=== PATIENT | male | born 1960 | race Caucasian/White ===

== ENCOUNTER → 2017-04-14 | Emergency (ER) | payer OTHER ==
[~2017-04-14] VITALS: Ht 185.4 cm; Wt 74.8 kg
[~2017-04-14] MED LIST: ASPIRIN81 M1 PO; B-12500 MC1 PO; BACTRIM DS 8001 TA1 PO; BUSPAR15 MG PO; CEPHALEXIN500 M1 PO; COMBIVENT1 ARO IH; CYCLOBENZAPRINE10 MG PO; CYCLOBENZAPRINE5 M3 PO; DIAZEPAM10 MG PO; HYDROCODONE BIT1 T11 PO; HYDRODIURIL25 MG PO; KLONOPIN1 MG PO; KROGER NIC21 MG/24 H T; LISINOPRIL20 MG PO; LISINOPRIL40 MG PO; LUNESTA2 MG PO; MEDROL DOSEPAK4 MG PO; METOPROLOL25 MG PO; METOPROLOL50 MG PO; MULTI VITAMINS1 TAB PO; NAPROSYN500 MG PO; NATURE'S BLEND F1 MG PO; NITROSTAT0.4 MG SL; OMEPRAZOLE D/R20 MG PO; PAXIL20 MG PO; PAXIL30 M2 PO; PRAVASTATIN SOD40 MG PO; PRILOSEC10 MG PO; PRILOSEC20 M1 PO; PRILOSEC20 M2 PO; SEROQUEL400 M1 PO; SEROQUEL400 MG PO; SIMVASTATIN5 MG PO; VALIUM10 MG PO; VALIUM5 MG PO; VITAMIN D5000 I3 PO
[2017-04-14 05:14] VITALS: BP 148/108
== END ==
LOC: ED 05:06
DX: S00.83XA Contusion of other part of head, initial encounter (principal); S40.812A Abrasion of left upper arm, initial encounter; S40.811A Abrasion of right upper arm, initial encounter; F17.200 Nicotine dependence, unspecified, uncomplicated; E78.00 Pure hypercholesterolemia, unspecified; E78.5 Hyperlipidemia, unspecified; K21.9 Gastro-esophageal reflux disease without esophagitis; Z79.82 Long term (current) use of aspirin; Z90.89 Acquired absence of other organs; Z98.890 Other specified postprocedural states; Z79.899 Other long term (current) drug therapy; Z88.8 Allergy status to other drugs, medicaments and biological substances; Y08.89XA Assault by other specified means, initial encounter; Y93.89 Activity, other specified; Y92.89 Other specified places as the place of occurrence of the external cause; Y99.9 Unspecified external cause status

== ENCOUNTER → 2017-07-30 | Outpatient (CLI) | payer OTHER | END | disposition home or self-care (01) | LOC: RESCLI 01:45 | DX: F31.9 Bipolar disorder, unspecified (principal); K21.9 Gastro-esophageal reflux disease without esophagitis; F41.9 Anxiety disorder, unspecified; I10 Essential (primary) hypertension; E78.5 Hyperlipidemia, unspecified; I25.10 Atherosclerotic heart disease of native coronary artery without angina pectoris; J44.9 Chronic obstructive pulmonary disease, unspecified; Z72.0 Tobacco use; Z88.9 Allergy status to unspecified drugs, medicaments and biological substances ==

== ENCOUNTER → 2019-10-14 | Outpatient (CLI) | payer OTHER ==
[2019-10-14 09:53] LABS: BASO % 0.1 % (0.0-1.0); EOS # 0.2 10*3/uL (0.0-0.4); EOS % 1.7 % (1.0-4.0); HEMATOCRIT 45.9 % (42.0-52.0); HEMOGLOBIN 14.5 g/dl (14.0-18.0); LYMPH # 1.5 10*3/uL (1.3-4.4); LYMPH % 14.9 % (27.0-41.0); MEAN CELL VOLUME 92.7 fl (80.0-94.0); MEAN CORPUSCULAR HGB 29.3 pg (27.0-31.0); MEAN CORPUSCULAR HGB CONC 31.6 g/dl (33.0-37.0); MEAN PLATELET VOLUME 9.9 fl (9.6-12.3); MONO # 0.7 10*3/uL (0.1-1.0); NEUT # 7.6 10*3/uL (2.3-7.9); PLATELET COUNT AUTOMATED 294 10*3/uL (130-400); RED BLOOD COUNT 4.95 10*6/uL (4.50-5.90); RED CELL DISTRI WIDTH 13.5 % (0-14.5)
[2019-10-14 10:08] LABS: BUN 10 mg/dl (7-24); CHLORIDE 109 mmol/L (98-107); CHOLESTEROL 148 mg/dL (<200); CREATININE 0.97 mg/dL (0.70-1.30); HDL CHOLESTEROL 40 mg/dl (40-60); LDL CHOLESTEROL 94 mg/dL (9-159); SODIUM 141 mmol/L (136-145); TRIGLYCERIDES 69 mg/dl (<150); VLDL CHOLESTEROL 14 mg/dL (6-40)
== END | disposition home or self-care (01) ==
LOC: RESCLI 00:19
PROVIDERS: Internal Medicine
DX: Z76.89 Persons encountering health services in other specified circumstances (principal); F31.9 Bipolar disorder, unspecified; K21.9 Gastro-esophageal reflux disease without esophagitis; I10 Essential (primary) hypertension; J44.9 Chronic obstructive pulmonary disease, unspecified; I25.10 Atherosclerotic heart disease of native coronary artery without angina pectoris; F41.9 Anxiety disorder, unspecified; E78.5 Hyperlipidemia, unspecified; Z72.0 Tobacco use; Z79.899 Other long term (current) drug therapy; Z90.89 Acquired absence of other organs; Z88.8 Allergy status to other drugs, medicaments and biological substances

== ENCOUNTER → 2020-04-22 | Outpatient (CLI) | payer OTHER | END | disposition home or self-care (01) | LOC: RESCLI 01:50 | DX: M25.551 Pain in right hip (principal); I10 Essential (primary) hypertension; E78.5 Hyperlipidemia, unspecified; F41.1 Generalized anxiety disorder; F41.0 Panic disorder [episodic paroxysmal anxiety]; J44.9 Chronic obstructive pulmonary disease, unspecified ==

== ENCOUNTER → 2020-07-22 | Outpatient (CLI) | payer OTHER | END | disposition home or self-care (01) | LOC: RESCLI 01:56 | PROVIDERS: ATTEND Student in an Organized Health Care Education/Training Program | DX: F31.9 Bipolar disorder, unspecified (principal); K21.9 Gastro-esophageal reflux disease without esophagitis; I10 Essential (primary) hypertension; J44.9 Chronic obstructive pulmonary disease, unspecified; I25.10 Atherosclerotic heart disease of native coronary artery without angina pectoris; F41.9 Anxiety disorder, unspecified; E78.5 Hyperlipidemia, unspecified; M25.551 Pain in right hip; F43.10 Post-traumatic stress disorder, unspecified; J30.2 Other seasonal allergic rhinitis; Z72.0 Tobacco use; Z79.899 Other long term (current) drug therapy; Z88.8 Allergy status to other drugs, medicaments and biological substances; Z98.890 Other specified postprocedural states ==

== ENCOUNTER → 2021-02-14 | Outpatient (CLI) | payer OTHER ==
[2021-02-14 15:12] LABS: BASO % 0.2 % (0.0-1.0); EOS % 0.2 % (1.0-4.0); HEMATOCRIT 46.7 % (42.0-52.0); LYMPH # 1.7 10*3/uL (1.3-4.4); LYMPH % 19.4 % (27.0-41.0); MEAN CELL VOLUME 94.3 fl (80.0-94.0); MEAN CORPUSCULAR HGB 30.7 pg (27.0-31.0); MEAN CORPUSCULAR HGB CONC 32.5 g/dl (33.0-37.0); MEAN PLATELET VOLUME 9.6 fl (9.6-12.3); MONO # 0.5 10*3/uL (0.1-1.0); MONO % 5.3 % (3.0-9.0); NEUT # 6.4 10*3/uL (2.3-7.9); NEUT % 74.7 % (47.0-73.0); PLATELET COUNT AUTOMATED 261 10*3/uL (130-400); RED BLOOD COUNT 4.95 10*6/uL (4.50-5.90); RED CELL DISTRI WIDTH 14.4 % (0-14.5); WHITE BLOOD COUNT 8.6 10*3/uL (4.8-10.8)
[2021-02-14 15:52] LABS: ALBUMIN 3.4 gm/dl (3.1-4.5); ALKALINE PHOSPHATASE 126 U/L (45-117); BUN 10 mg/dl (7-24); CHLORIDE 105 mmol/L (98-107); CHOLESTEROL 167 mg/dL (<200); POTASSIUM 4.1 mmol/L (3.5-5.1); SGOT/AST 13 IU/L (3-35); SGPT/ALT 20 U/L (12-78); SODIUM 139 mmol/L (136-145); TOTAL PROTEIN 7.5 gm/dL (6.4-8.2); TRIGLYCERIDES 79 mg/dl (<150)
[2021-02-14 15:54] LABS: LDL CHOLESTEROL 91 mg/dL (9-159)
== END | disposition home or self-care (01) ==
LOC: RESCLI 01:17
PROVIDERS: Internal Medicine; ATTEND Internal Medicine
DX: I10 Essential (primary) hypertension (principal); E78.5 Hyperlipidemia, unspecified; J44.9 Chronic obstructive pulmonary disease, unspecified; F41.9 Anxiety disorder, unspecified; Z88.8 Allergy status to other drugs, medicaments and biological substances; K21.9 Gastro-esophageal reflux disease without esophagitis; F31.9 Bipolar disorder, unspecified; I25.10 Atherosclerotic heart disease of native coronary artery without angina pectoris; J30.2 Other seasonal allergic rhinitis; R63.4 Abnormal weight loss; Z53.20 Procedure and treatment not carried out because of patient's decision for unspecified reasons; Z12.2 Encounter for screening for malignant neoplasm of respiratory organs; Z79.82 Long term (current) use of aspirin; Z79.899 Other long term (current) drug therapy; Z72.0 Tobacco use

== ENCOUNTER 2022-07-11 15:34 | Emergency (ER) | payer OTHER ==
[~2022-07-11] VITALS: Ht 182.8 cm; Wt 58.1 kg
[2022-07-11 16:04] LABS: BASO % 0.1 % (0.0-1.0); HEMATOCRIT 44.7 % (42.0-52.0); LYMPH # 1.3 10*3/uL (1.3-4.4); MEAN CELL VOLUME 93.3 fl (80.0-94.0); MEAN CORPUSCULAR HGB 31.3 pg (27.0-31.0); MEAN CORPUSCULAR HGB CONC 33.6 g/dl (33.0-37.0); MEAN PLATELET VOLUME 9.5 fl (9.6-12.3); MONO # 0.4 10*3/uL (0.1-1.0); MONO % 4.2 % (3.0-9.0); NEUT # 6.6 10*3/uL (2.3-7.9); NEUT % 79.5 % (47.0-73.0); PLATELET COUNT AUTOMATED 251 10*3/uL (130-400); RED BLOOD COUNT 4.79 10*6/uL (4.50-5.90); RED CELL DISTRI WIDTH 12.7 % (0-14.5); WHITE BLOOD COUNT 8.4 10*3/uL (4.8-10.8)
[2022-07-11 16:16] LABS: ACT PARTIAL THROMBO TIME 26.2 SECONDS (20.0-32.1)
[2022-07-11 16:20] LABS: ALKALINE PHOSPHATASE 111 U/L (45-117); BUN 14 mg/dl (7-24); CHLORIDE 109 mmol/L (98-107); CREATININE 1.09 mg/dL (0.70-1.30); SGOT/AST 9 IU/L (3-35); SGPT/ALT 18 U/L (12-78); SODIUM 142 mmol/L (136-145); TOTAL PROTEIN 7.6 gm/dL (6.4-8.2)
[2022-07-11 16:46] VITALS: BP 171/80
[2022-07-11] MEDS ORDERED: CARAFATE1 G1 PO ×2 (16:50→17:22)
[2022-07-11 17:01] VITALS: BP 163/92
[2022-07-11 17:16] VITALS: BP 149/91
[2022-07-11] MEDS ORDERED: PROTONIX40 MG PO (17:22)
== END 2022-07-11 17:30 | disposition home or self-care (01) ==
LOC: ED 15:34
PROVIDERS: Emergency Medicine
DX: K22.2 Esophageal obstruction (principal); I10 Essential (primary) hypertension; K21.9 Gastro-esophageal reflux disease without esophagitis; E78.5 Hyperlipidemia, unspecified; F17.200 Nicotine dependence, unspecified, uncomplicated; Z88.8 Allergy status to other drugs, medicaments and biological substances; Z79.899 Other long term (current) drug therapy; Z79.82 Long term (current) use of aspirin; Z98.890 Other specified postprocedural states

== ENCOUNTER → 2023-01-25 | Outpatient (CLI) | payer OTHER ==
[~2023-01-25] MED LIST changes: +CARAFATE1 G1 PO; +PROTONIX40 MG PO
[2023-01-25 11:02] LABS: BASO % 0.3 % (0.0-1.0); EOS # 0.1 10*3/uL (0.0-0.4); EOS % 1.1 % (1.0-4.0); HEMATOCRIT 48.3 % (42.0-52.0); LYMPH % 31.2 % (27.0-41.0); MEAN CELL VOLUME 94.2 fl (80.0-94.0); MEAN CORPUSCULAR HGB 31.2 pg (27.0-31.0); MEAN CORPUSCULAR HGB CONC 33.1 g/dl (33.0-37.0); MEAN PLATELET VOLUME 9.5 fl (9.6-12.3); MONO # 0.4 10*3/uL (0.1-1.0); NEUT # 3.8 10*3/uL (2.3-7.9); NEUT % 60.2 % (47.0-73.0); PLATELET COUNT AUTOMATED 273 10*3/uL (130-400); RED BLOOD COUNT 5.13 10*6/uL (4.50-5.90); RED CELL DISTRI WIDTH 14.4 % (0-14.5); WHITE BLOOD COUNT 6.3 10*3/uL (4.8-10.8)
[2023-01-25 11:31] LABS: ALKALINE PHOSPHATASE 133 U/L (46-116); CHLORIDE 103 mmol/L (98-107); CHOLESTEROL 192 mg/dL (<200); LDL CHOLESTEROL 101 mg/dL (9-159); POTASSIUM 4.5 mmol/L (3.4-5.1); SGPT/ALT 24 U/L (10-49); TOTAL PROTEIN 7.1 gm/dL (6.0-8.0); TRIGLYCERIDES 186 mg/dl (<150)
[2023-01-25 11:35] LABS: BUN < 5 mg/dl (9-23)
== END | disposition home or self-care (01) ==
LOC: LAB 01-23 01:06
PROVIDERS: ATTEND Nurse Practitioner
DX: Z51.81 Encounter for therapeutic drug level monitoring (principal); Z79.899 Other long term (current) drug therapy

== ENCOUNTER 2024-06-21 18:20 | Emergency (ER) | payer OTHER ==
[~2024-06-21] VITALS: Ht 182.8 cm; Wt 61.8 kg
[~2024-06-21 18:20] MED LIST changes: +24 HOUR ALLER15.8 ML INH; +CETIRIZINE HYDR10 MG PO; +FAMOTIDINE20 M1 PO; +HYDR25T PO; +LIPITOR80 MG PO; +PLAVIX75 M1 PO; +VITAMIN B-1100 M1 PO
[2024-06-21 18:30] VITALS: BP 152/70
[2024-06-21] MEDS ORDERED: OMEPRAZOLE40 MG PO (18:34)
[2024-06-21] MEDS ORDERED: TAB-A-VITE MUL1 EACH PO (18:34)
[2024-06-21] MEDS ORDERED: IBU800 M1 PO (18:35)
[2024-06-21] MEDS ORDERED: Ketorolac Tromethamine 30 MG/ML VIAL IM ONE (19:00)
[2024-06-21] MEDS ORDERED: Dexamethasone Sodium Phospha 20 MG/5 ML VIAL IM ONE (19:05)
[2024-06-21] MEDS ORDERED: Acetaminophen/Oxycodone 5 MG/325 MG TABLET PO ONE (19:05)
== END 2024-06-21 19:30 | disposition home or self-care (01) ==
LOC: ED 18:20
DX: G89.29 Other chronic pain (principal); M19.90 Unspecified osteoarthritis, unspecified site; M25.551 Pain in right hip; Z88.5 Allergy status to narcotic agent; Z88.8 Allergy status to other drugs, medicaments and biological substances; Z79.899 Other long term (current) drug therapy; Z79.82 Long term (current) use of aspirin; Z87.891 Personal history of nicotine dependence

== ENCOUNTER → 2024-07-01 | Outpatient (CLI) | payer OTHER ==
[~2024-07-01] MED LIST changes: +IBU800 M1 PO; +OMEPRAZOLE40 MG PO; +TAB-A-VITE MUL1 EACH PO
== END | disposition home or self-care (01) ==
LOC: RAD 15:59
PROVIDERS: ATTEND Internal Medicine
DX: M16.11 Unilateral primary osteoarthritis, right hip (principal)